=== PATIENT | male | born 1945 | race Caucasian/White ===

== ENCOUNTER 2021-12-25 07:51 | Day surgery (SDC) | payer MEDICARE, BC ==
[2021-12-22 15:59] VITALS: BMI 25.8
[2021-12-25] MEDS ORDERED: Thrombin 5000 UNITS/5 ML VIAL ONE (08:05)
[2021-12-25] MEDS ORDERED: Bupivacaine HCl 0.5%/Epinephrine 1:200,000/PF 30 ml Vial ONE (08:05)
[2021-12-25] MEDS ORDERED: Sodium Chloride 0.9% 100 ML ONE ×2 (08:14→12:17)
[2021-12-25] MEDS ORDERED: CEFAZOLIN 2 GM VIAL ONE ×2 (08:14→12:16)
[2021-12-25] MEDS ORDERED: fentaNYL PF 100 MCG/2 ML SYRINGE ONE (08:37)
[2021-12-25] MEDS ORDERED: PROPOFOL 200 MG/20 ML VIAL ONE (08:44)
[2021-12-25] MEDS ORDERED: Ondansetron PF 4 MG/2 ML Vial ONE (08:44)
[2021-12-25] MEDS ORDERED: Rocuronium Bromide 10 MG/ML (10ML VIAL) ONE (08:44)
[2021-12-25] MEDS ORDERED: PHENYLEPHRINE-NS 100 MCG/ML 10 ML SYRINGE ONE (08:44)
[2021-12-25] MEDS ORDERED: Dexamethasone 20 MG/5 ML VIAL ONE (08:44)
[2021-12-25] MEDS ORDERED: Ketorolac Tromethamine 30 MG/ML VIAL ONE (08:44)
[2021-12-25] MEDS ORDERED: NEOSTIGMINE 3 MG/3 ML SYR 3 MG/3 ML SYRINGE ONE (08:44)
[2021-12-25] MEDS ORDERED: FENTANYL 50 MCG/ML 1 ML VIAL ONE ×4 (10:03→10:47)
[2021-12-25] MEDS ORDERED: Tamsulosin HCl 0.4 MG CAP ONE (10:15)
== END 2021-12-25 13:20 | disposition home or self-care (01) ==
LOC: SDC 07:51
PROVIDERS: ATTEND Neurological Surgery
PROC: 01NB0ZZ Release Lumbar Nerve, Open Approach (ICD-10-PCS; principal; 2021-12-25)
DX: M51.16 Intervertebral disc disorders with radiculopathy, lumbar region (principal); M48.061 Spinal stenosis, lumbar region without neurogenic claudication; Z79.890 Hormone replacement therapy; Z79.899 Other long term (current) drug therapy; Z96.653 Presence of artificial knee joint, bilateral; Z98.890 Other specified postprocedural states
CPT/HCPCS: 93005; 93010; J1100; J1885; J2405; J2704; J3010; J3490